=== PATIENT | female | born 1995 | race African-American/Black ===

== ENCOUNTER 2017-02-22 08:52 | Emergency (ER) | payer SELFPAY ==
[2017-02-22 09:37] LABS: BASOPHILS 0.1 % (0-2); EOSINOPHILS 0.7 % (0-7); HEMOGLOBIN 13.5 g/dL (12-16); IMMATURE GRANULOCYTES 0.2 % (0-5); LYMPHOCYTES 15.8 % (15-50); MCH 27.8 pg (26.0-34.0); MCHC 32.9 g/dL (31.0-37.0); MCV 84.4 fL (80.0-100.0); MEAN PLATELET VOLUME 10.9 fL (7.4-10.4); MONOCYTES 6.3 % (2-11); NEUTROPHILS 76.9 % (40-80); PLATELET COUNT 266 10x3/uL (130-400); RBC 4.86 10x6/uL (4.00-5.40); RDW 13.5 % (11.5-14.5); WBC 12.4 10x3/uL (4.8-10.8)
[2017-02-22 09:38] LABS: APPEARANCE TURBID (CLEAR); BILIRUBIN NEGATIVE (NEGATIVE); COLOR YELLOW (YELLOW); GLUCOSE NEGATIVE (NEGATIVE); KETONE NEGATIVE (NEGATIVE); LEUKOCYTE ESTERASE TRACE (NEGATIVE); NITRITE NEGATIVE (NEGATIVE); PROTEIN NEGATIVE (NEGATIVE); UROBILINOGEN NORMAL (NORMAL)
[2017-02-22 09:39] LABS: HCG SERUM NEGATIVE (NEGATIVE)
[2017-02-22 09:39] LABS: UDS - AMPHET NEGATIVE QUAL (NEGATIVE); UDS - BARB NEGATIVE QUAL (NEGATIVE); UDS - BENZO NEGATIVE QUAL (NEGATIVE); UDS - COCAINE NEGATIVE QUAL (NEGATIVE); UDS - METH NEGATIVE QUAL (NEGATIVE); UDS - OPIATE NEGATIVE QUAL (NEGATIVE); UDS - PCP NEGATIVE QUAL (NEGATIVE); UDS - THC NEGATIVE QUAL (NEGATIVE)
[2017-02-22 09:43] LABS: AMORPHOUS SEDIMENT >1+ /lpf (NONE SEEN); BACTERIA FEW /hpf (NONE SEEN); RED CELLS - URINE RARE /hpf (0-5); WHITE CELLS - URINE 0-5 /hpf (0-5)
[2017-02-22 09:45] LABS: ALBUMIN 3.5 g/dL (3.4-5.0); ALKALINE PHOSPHATASE 117 U/L (46-116); ALT (SGPT) 30 U/L (10-68); BILIRUBIN - TOTAL 0.42 mg/dL (0.2-1.3); CALC OSMOLALITY 275 mosm/kg (275-300); CALCIUM 8.5 mg/dL (8.5-10.1); CARBON DIOXIDE 27.9 mmol/L (21.0-32.0); CHLORIDE - SERUM 102 mmol/L (98-107); CREATININE - SERUM 0.9 mg/dL (0.6-1.3); GLUCOSE 132 mg/dL (74-106); LIPASE 175 U/L (73-393); POTASSIUM - SERUM 3.9 mmol/L (3.5-5.1); PROTEIN - SERUM 7.7 g/dL (6.4-8.2); SODIUM 138 mmol/L (136-145); UREA NITROGEN 8 mg/dL (7-18); eGFR NON AFRICAN AMERICAN 85 mL/min (90-120)
== END 2017-02-22 12:11 | disposition home or self-care (01) ==
LOC: D.ER 08:52
PROVIDERS: Emergency Medicine
DX: K52.9 Noninfective gastroenteritis and colitis, unspecified (principal)

== ENCOUNTER 2019-04-07 17:25 | Emergency (ER) | payer OTHER ==
[~2019-04-07] VITALS: Ht 157.5 cm; Wt 141.4 kg
[2019-04-07 17:45] VITALS: Ht 157.5 cm; Wt 141.4 kg
[2019-04-07] MEDS ORDERED: MOBIC7.5 MG (17:47)
[2019-04-07] MEDS ORDERED: EPIPEN 2-P0.3 MG/0.3 IM (17:48)
[2019-04-07] MEDS ORDERED: OMEPRAZOLE20 M1 PO (17:48)
[2019-04-07] MEDS ORDERED: ALBUTEROL SULF8.5 GM INH (17:48)
[2019-04-07 18:28] LABS: BASOPHILS 0.1 % (0-2); EOSINOPHILS 3.7 % (0-7); HEMATOCRIT 34.8 % (36.0-48.0); HEMOGLOBIN 11.9 g/dL (12-16); IMMATURE GRANULOCYTES 0.2 % (0-5); LYMPHOCYTES 24.6 % (15-50); MCH 28.7 pg (26.0-34.0); MCHC 34.2 g/dL (31.0-37.0); MCV 83.9 fL (80.0-100.0); MEAN PLATELET VOLUME 11.1 fL (7.4-10.4); MONOCYTES 6.3 % (2-11); NEUTROPHILS 65.1 % (40-80); PLATELET COUNT 257 10x3/uL (130-400); RBC 4.15 10x6/uL (4.00-5.40); RDW 13.8 % (11.5-14.5); WBC 13.7 10x3/uL (4.8-10.8)
[2019-04-07 18:46] LABS: ALBUMIN 3.2 g/dL (3.4-5.0); ALKALINE PHOSPHATASE 89 U/L (46-116); ALT (SGPT) 32 U/L (10-68); BILIRUBIN - TOTAL 0.21 mg/dL (0.2-1.3); CALC OSMOLALITY 272 mosm/kg (275-300); CALCIUM 8.4 mg/dL (8.5-10.1); CARBON DIOXIDE 27.7 mmol/L (21.0-32.0); CHLORIDE - SERUM 105 mmol/L (98-107); CREATININE - SERUM 0.7 mg/dL (0.6-1.3); GLUCOSE 101 mg/dL (74-106); HCG SERUM NEGATIVE (NEGATIVE); POTASSIUM - SERUM 4.6 mmol/L (3.5-5.1); PROTEIN - SERUM 7.3 g/dL (6.4-8.2); SODIUM 138 mmol/L (136-145); UREA NITROGEN 5 mg/dL (7-18); eGFR NON AFRICAN AMERICAN > 90 mL/min (90-120)
[2019-04-07 23:02] VITALS: BP 132/80
== END 2019-04-07 23:03 | disposition home or self-care (01) ==
LOC: D.ER 17:25
PROVIDERS: Emergency Medicine
DX: N93.8 Other specified abnormal uterine and vaginal bleeding (principal)

== ENCOUNTER → 2019-04-09 10:54 | Outpatient (CLI) | payer OTHER ==
[2019-04-07 17:45] VITALS: BMI 57.0
[~2019-04-09 10:54] MED LIST: ALBUTEROL SULF8.5 GM INH; EPIPEN 2-P0.3 MG/0.3 IM; MOBIC7.5 MG PO; OMEPRAZOLE20 M1 PO
[2019-04-09 12:05] LABS: BASOPHILS 0.1 % (0-2); EOSINOPHILS 2.6 % (0-7); HEMATOCRIT 34.4 % (36.0-48.0); HEMOGLOBIN 11.5 g/dL (12-16); IMMATURE GRANULOCYTES 0.3 % (0-5); LYMPHOCYTES 23.4 % (15-50); MCHC 33.4 g/dL (31.0-37.0); MCV 83.9 fL (80.0-100.0); MEAN PLATELET VOLUME 11.4 fL (7.4-10.4); MONOCYTES 8.4 % (2-11); NEUTROPHILS 65.2 % (40-80); PLATELET COUNT 255 10x3/uL (130-400)
[2019-04-09 12:08] LABS: WBC 9.5 10x3/uL (4.8-10.8)
[2019-04-30 07:46] VITALS: BMI 48.3
== END | disposition home or self-care (01) ==
LOC: D.LABREF 10:54
PROVIDERS: ATTEND Obstetrics & Gynecology
DX: E28.2 Polycystic ovarian syndrome (principal)

== ENCOUNTER 2019-04-30 06:25 | Day surgery (SDC) | payer OTHER ==
[2019-04-28 10:11] LABS: BASOPHILS 0.1 % (0-2); EOSINOPHILS 2.3 % (0-7); HEMATOCRIT 32.3 % (36.0-48.0); HEMOGLOBIN 10.9 g/dL (12-16); IMMATURE GRANULOCYTES 0.2 % (0-5); LYMPHOCYTES 23.2 % (15-50); MCH 27.7 pg (26.0-34.0); MCHC 33.7 g/dL (31.0-37.0); MEAN PLATELET VOLUME 10.8 fL (7.4-10.4); NEUTROPHILS 68.2 % (40-80); RBC 3.94 10x6/uL (4.00-5.40); RDW 13.3 % (11.5-14.5); WBC 10.1 10x3/uL (4.8-10.8)
[2019-04-28 10:13] LABS: PLATELET COUNT 335 10x3/uL (130-400)
[~2019-04-30] VITALS: Ht 172.7 cm; Wt 143.8 kg
[2019-04-30 07:46] VITALS: BP 158/105; Ht 172.7 cm; Wt 143.8 kg
--- NOTE | 2019-04-30 07:52 | NUR ---
ACCORDING TO THE SUICIDE RISK ASSESSMENT THE PATIENT RATES LOW AND SHE DOES NOT REQUIRE A 1:1 OBSERVATION AT THIS TIME.
[2019-04-30 09:07] LABS: HCG URINE NEGATIVE (NEGATIVE)
--- NOTE | 2019-04-30 09:58 | NUR ---
PT ARRIVED INTO PACU AGGITATED AND SLASHING AROUND IN THE BED, TRYING TO RAISE UP AND ROLL OVER DESPITE ME TRYING TO TELL THE PT TO STAY STILL THAT SHE WAS WAKING UP FROM HER SURGERY. ANESTHESIA IS STILL AT BEDISIDE AT THIS TIME AND V.O. TO GIVE 2MG OF VERSED IV AT THIS TIME. V.O READ BACK CORRECT.
--- NOTE | 2019-04-30 10:05 | NUR ---
GAVE 2MG OF VERSED IV ORDERED PER ANETHESIA. PT IS STILL RESTLESS AND SLASHING AROUND. ME, ANESTHEISA, AND ANOTHER PACU NURSE SONDRA ARE HELPING TO HOLD PT STILL FROM HARMING HERSELF AND US. SHE IS CONTINUOUS TRYING TO ROLL AND SLASHING HER ARMS. V.O TO ALSO GIVE 10MCG OF PRECEDEX IV AT THIS TIME WELL. V.O READ BACK CORRECT. WILL GET OUT OF PIXUS AND GIVE ORDERED. ANESTHESIA VERBAIZED THEY WOULD DOCUMENT VERSED AND PRECEDEX ON THEIR ANESTHESIA GREEN SHEET
--- NOTE | 2019-04-30 10:11 | NUR ---
PT HAS FINALY CALMED DOWN AND IS RESTING. WILL CONTINUE TO MONITOR PER PROTOCOL.
--- NOTE | 2019-04-30 13:11 | NUR ---
1048-REC['D FROM RR,DROWSY EASILY AROUSED WITH VERBAL STIMULI. DENIES COMPLAINTS. VSS. IV PATENT AT [facility]. FAMILY AT BEDSIDE WITH CL IN EASY REACH.
--- NOTE | 2019-04-30 13:13 | NUR ---
1140-CONTINUE TO BE DROWSY, DENIES COMPLAINTS. VSS.
--- NOTE | 2019-04-30 13:13 | NUR ---
1305-DISCHARGE CRITERIA MET. REMOVED IV FROM LEFT HAND WITH CATH INTACT, DISPOSED INTO SHARPS CONTAINER. COVERED SITE WITH BANDAID. REVIEWED POST OPERATIVE INSTRUCTIONS,VERBALIZED UNDERSTANDING. ESCORTED OUT VIA W/C WITH FAMILY TO DRIVE HOME.
--- NOTE | 2019-05-17 13:26 | OP ---
PATIENT NAME: INA RHODES V MEDICAL RECORD: [id number] :97 LOCATION:D.OPS ADMISSION DATE: SURGEON: TREMAINE SHIN MD DATE OF OPERATION: 04/30/2019 PREOPERATIVE DIAGNOSES: 1. Amenorrheic. 2. Polycystic ovarian syndrome. POSTOPERATIVE DIAGNOSES: 1. Amenorrheic. 2. Polycystic ovarian syndrome. PROCEDURES: Hysteroscopy, dilation and curettage. SURGEON: Tremaine Shin MD ANESTHESIA: General endotracheal. INTRAVENOUS FLUIDS: Per anesthesia record. HYSTEROSCOPIC FLUID LOSS: Less than 20 cc of 0.9 normal saline. SPECIMENS: Endometrial curettings. FINDINGS: 1. Grossly normal-appearing external genitalia and cervix. 2. Grossly normal-appearing endocervical canal. 3. Proliferative phase appearing endometrial canal. COMPLICATIONS: None apparent. DESCRIPTION OF PROCEDURE: The patient was taken to the operating room where general anesthesia was achieved without any difficulty. The patient was then prepped and draped in normal sterile fashion in the dorsal lithotomy position in the [facility]. The patient was prepped and draped, and the bladder was drained of approximately 50-100 cc of clear yellow urine. A Graves speculum was then placed into the vagina and the cervix was identified, grasped on its anterior lip with a single-tooth tenaculum. The cervix was dilated to approximately 5 mm, at which point, the hysteroscope was placed into the cervix and survey of the endocervix and endometrium was performed. Findings were as mentioned. Following removal of the hysteroscope, the patient was further dilated to approximately 8 mm at which time a #1 curette was then used to gently remove as much endometrial tissue as possible. Following curettage, the tenaculum was removed. The patient was transferred to postanesthesia recovery stable without incident. TRANSINT:[id number] Voice Confirmation ID: [id number] DOCUMENT ID: [id number] OPERATIVE REPORT [id number] INA RHODES V TREMAINE SHIN MD at 1326 CC: [id number] DICTATION DATE: 05/14/19 1041 CREPE MAKER: 05/14/19 1133 [facility] 04/30/19 [place] [address]
== END 2019-04-30 13:05 | disposition home or self-care (01) ==
LOC: D.OPS 06:25 → D.PAN 08:30 → D.OPS 08:30 → D.PAN 08:50 → D.OPS 10:30 → D.PAN 10:30 → D.OPS 13:05
PROVIDERS: ATTEND Obstetrics & Gynecology
DX: E28.2 Polycystic ovarian syndrome (principal)